=== PATIENT | male | born 1985 | race Two or more races ===

== ENCOUNTER 2023-10-11 18:28 | Emergency (ER) | payer MEDICAID, SELFPAY ==
--- NOTE | ~2023-10-11 | US_ITS ---
EXAMINATION: US ABDOMEN LIMITED CLINICAL INFORMATION: Right upper quadrant pain. Rule out gallstone.. COMPARISON: None available. TECHNIQUE: Real-time imaging of the gallbladder. FINDINGS: PANCREAS: Not evaluated. LIVER: The incidentally visualized portion of the liver appears unremarkable. No intrahepatic biliary duct dilatation is seen. GALLBLADDER: Echogenic structure in the gallbladder fossa with dirty posterior shadowing. Technologist reports positive sonographic Dixon's sign. COMMON BILE DUCT: Normal in caliber measuring 0.2 cm in diameter. RIGHT KIDNEY: Not evaluated. FREE FLUID: None grossly visualized. US/US abdomen limited IMPRESSION: Echogenic structure in the gallbladder fossa with dirty posterior shadowing. Although this finding may represent a gallbladder filled with stones, bowel within the gallbladder fossa status post cholecystectomy may mimic this finding. Recommend clinical correlation. The gallbladder is not definitively identified as such.
[2023-10-11 18:36] VITALS: BP 128/84; PULSE 71; RESP 18; TEMP 37.1; O2SAT 98; BMI 29.3
[2023-10-11 18:59] LABS: MANUAL DIFF FLAG NO
[2023-10-11 19:02] LABS: Basophils Absolute Auto 0.1 X10*3/uL (0.0-0.2); Basophils Percent Auto 0.6 % (0-2); Eosinophils Absolute Auto 0.3 X10*3/uL (0.0-0.4); Eosinophils Percent Auto 3.2 % (0-4); Hematocrit 44.3 % (42.0-52.0); Hemoglobin 15.3 g/dl (14.0-18.0); Imm Gran Abs Auto 0.02 X10*3/uL (0.00-0.03); Imm Gran Pct Auto 0.2 % (0.0-0.4); Lymphocytes Absolute Auto 2.8 X10*3/uL (1.2-4.9); Lymphocytes Percent Auto 33.1 % (20-40); Mean Corpuscular HGB Conc 34.5 g/dl (31.0-36.0); Mean Corpuscular Hemoglobin 27.9 pg (27.0-33.0); Mean Corpuscular Volume 80.7 fL (80.0-98.0); Mean Platelet Volume 9.6 fL (9.4-12.4); Monocytes Absolute Auto 0.6 X10*3/uL (0.1-1.2); Monocytes Percent Auto 6.6 % (2-11); Neutrophils Absolute Auto 4.8 x10*3/uL (2.0-8.3); Neutrophils Percent Auto 56.3 % (45-73); Platelet Count 252 X10*3/uL (160-400); Red Blood Count 5.49 X10*6/uL (4.60-5.80); Red Cell Distribution Width 11.9 % (11.0-16.0); White Blood Count 8.5 X10*3/uL (4.8-10.8)
[2023-10-11 19:17] LABS: Alanine Aminotransferase 49 U/L (0-40); Albumin Level 4.3 g/dL (3.5-5.0); Alkaline Phosphatase 84 U/L (39-117); Anion Gap 15 (12-20); Aspartate Amino Transferase 35 U/L (5-37); Bilirubin Direct 0.1 mg/dL (0.0-0.5); Bilirubin Total 0.5 mg/dL (0.0-1.0); Blood Urea Nitrogen 17 mg/dL (9-16); Calcium 9.6 mg/dL (8.4-10.2); Carbon Dioxide 26 mmol/L (22-29); Chloride 103 mmol/L (96-108); Creatinine Clr Calc Pharmacy 105.4; Estimated Glomerular Filt Rate > 60; Glucose Random 87 mg/dL (60-115); Lipase 25 U/L (8-78); Sodium 140 mmol/L (135-145); Total Protein 7.6 g/dL (6.5-8.0)
--- NOTE | 2023-10-11 19:19 | ED_ITS ---
HPI - Abdominal Pain General Chief Complaint: Abdominal Pain Stated Complaint: Abdominal pain Time Seen by Provider: 10/11/23 19:18 Source: patient and per diem interpreter Mode of arrival: ambulatory Limitations: no limitations History of Present Illness HPI narrative: 38 year old male with pmhx significant for omphalocele s/p surgery at presents to the ED today for evaluation of right upper quadrant abdominal pain x1 day. Reports pain came on acutely while at rest in his home. Pain comes and goes and is described as a dull aching sensation. States that he has never had this pain before. Pain is not exacerbated with p.o. intake. Last BM this morning. Admits that he has been evaluated for stomach issues in the past and was told to avoid dairy products, meats and high fatty foods. He can not remember what he was diagnosed with. Denies eating any of these foods recently. Denies known sick contacts. No known history of gallstones, hepatitis or liver disease. Denies fever, chills, nausea, vomiting, diarrhea, constipation, dysuria, hematuria, flank pain. Denies previous abdominal surgeries. interpreter deaf utilized during to communicate with patient. Related Data Allergies Allergy/AdvReac Type Severity Reaction Status Date / Time No Known Allergies Allergy Verified 10/11/23 18:39 Review of Systems Review of Systems Constitutional: No fever, chills, fatigue, night sweats, weight changes ENT/Mouth: No ear pain, hearing loss, nasal congestion, sinus pain, rhinorrhea, sore throat Eyes: No eye pain, swelling, redness, vision changes, discharge Cardio: No chest pain, palpitations, TRAVIS, orthopnea, peripheral edema Pulm: No SOB, cough, sputum, wheezing, dyspnea, hemoptysis GI: No nausea, vomiting, hematemesis, diarrhea, constipation, hematochezia, melena, +abdominal pain : No irregular bleeding, dysuria, frequency, urgency, hesitancy, hematuria, flank pain, urinary flow changes, urinary incontinence or retention MSK: No back pain, neck pain, joint pain, myalgias Skin: No lesions, rashes Neuro: No weakness, numbness, paresthesias, LOC, dizziness, headache All other systems reviewed and are negative. [facility] Past Medical History Attestation statement: The following information was validated with the patient. Source: old records reviewed and nursing notes reviewed Social History Social History Advance Directives: No Advance Directives Information Provided: No Physical Exam ED Vital Signs: Vital Signs - 24 hr 10/11/23 18:36 10/11/23 21:09 Temperature 98.8 F 98.1 F Pulse Rate 71 57 Respiratory Rate 18 18 Blood Pressure 128/84 120/64 Pulse Oximetry 98 97 Oxygen Delivery Method Room Air Room Air BMI result Body Mass Index 29.3 Vital signs stable, afebrile. Const General: cooperative, healthy appearing, comfortable and no acute distress; No diaphoretic Nutritional Appearance: average body habitus Orientation/consciousness: patient oriented x3 Limitations: no limitations Eyes General: appearance normal, both eyes and all related structures Conjunctivae: conjunctivae normal Sclerae: sclerae normal Pupils: Equal, round and reactive pupils present Resp Effort & Inspection: normal respiratory effort and able to speak in complete sentences Auscultation: clear to auscultation bilaterally Cardio Rate: regular rate Rhythm: regular rhythm GI Other: + abdomen soft, nondistended, mildly tender to palpation of the right upper quadrant without rebound tenderness or guarding. Normoactive bowel sounds x4. Negative McBurney point tenderness. Negative Dixon's sign. Inspection: Yes normal to inspection General: Yes no CVA tenderness Back/Spine/Pelvis Back: no CVA tenderness Skin General skin exam: no rashes or lesions noted Neuro General: patient oriented x3 Cranial nerves: Yes Equal, round and reactive pupils present Gait exam (Neuro): Normal gait present Course Course Course Narrative: 1944-- CBC without leukocytosis or anemia. No left shift. Chemistries left showing slightly elevated BUN to 17, normal creatinine. Lipase WNL. Slight elevation in ALT, liver enzymes otherwise WNL. Serology negative for COVID, flu. Awaiting right upper quadrant ultrasound. 2099-- Patient stable at the end of my shift. Signed out to my colleague MISA Crowley pending US. 2218 --> Patient's US showed evidence of gallstones but no acute cholecystitis. Explained this to the patient. Patient given IM Toradol. Patient discharged. Medical Decision Making Medical Decision Making MDM Narrative: 38 year old male with pmhx significant for omphalocele s/p surgery at presents to the ED today for evaluation of right upper quadrant abdominal pain x1 day. Vital signs stable, afebrile. Patient is nontoxic-appearing and in no acute distress. On exam, abdomen soft, nondistended, mildly tender to palpation of the right upper quadrant without rebound tenderness or guarding. Normoactive bowel sounds x4. Negative McBurney point tenderness. Negative Dixon's sign. No CVAT bilaterally. No jaundice or icterus. Clinical concern for gastritis, gastroenteritis, viral syndrome, cholelithiasis. Lower suspicion for hepatitis, cihrosis, cholecystitis, cholangitis, nephrolithiasis, obstructive uropathy, ischemic bowel, bowel obstruction, acute abdomen. Plan for labs, serology, abd US, and re-evaluation. Differential Diagnosis Differential Diagnoses: The differential diagnosis associated with the presentation includes As above. Admission/Observation Not indicated. Lab Data MDM Lab Attestation statement: I reviewed the patient's lab results. As above. 10/11/23 18:53 10/11/23 18:53 Labs: Lab Results 10/11/23 Range/Units 18:53 WBC 8.5 (4.8-10.8) X10*3/uL RBC 5.49 (4.60-5.80) X10*6/uL Hgb 15.3 (14.0-18.0) g/dl Hct 44.3 (42.0-52.0) % MCV 80.7 (80.0-98.0) fL MCH 27.9 (27.0-33.0) pg MCHC 34.5 (31.0-36.0) g/dl RDW 11.9 (11.0-16.0) % Plt Count 252 (160-400) X10*3/uL MPV 9.6 (9.4-12.4) fL Immature Gran % (Auto) 0.2 (0.0-0.4) % Neut % (Auto) 56.3 (45-73) % Lymph % (Auto) 33.1 (20-40) % [place] % (Auto) 6.6 (2-11) % Eos % (Auto) 3.2 (0-4) % Baso % (Auto) 0.6 (0-2) % Lymph # (Auto) 2.8 (1.2-4.9) X10*3/uL [place] # (Auto) 0.6 (0.1-1.2) X10*3/uL Eos # (Auto) 0.3 (0.0-0.4) X10*3/uL Baso # (Auto) 0.1 (0.0-0.2) X10*3/uL Abs Immat Gran (auto) 0.02 (0.00-0.03) X10*3/uL Absolute Neuts (auto) 4.8 (2.0-8.3) x10*3/uL Absolute Nucleated RBC 0.000 (0.0-0.012) X10*3/uL Nucleated RBC % (auto) 0.0 (0.0-0.2) /100WBC Sodium 140 (135-145) mmol/L Potassium 4.0 (3.3-5.1) mmol/L Chloride 103 (96-108) mmol/L Carbon Dioxide 26 (22-29) mmol/L Anion Gap 15 (12-20) BUN 17 H (9-16) mg/dL Creatinine 1.13 (0.5-1.4) mg/dL Estim Creat Clear Calc 105.4 Estimated GFR > 60 Random Glucose 87 (60-115) mg/dL Calcium 9.6 (8.4-10.2) mg/dL Total Bilirubin 0.5 (0.0-1.0) mg/dL Direct Bilirubin 0.1 (0.0-0.5) mg/dL AST 35 (5-37) U/L ALT 49 H (0-40) U/L Alkaline Phosphatase 84 (39-117) U/L Total Protein 7.6 (6.5-8.0) g/dL Albumin 4.3 (3.5-5.0) g/dL Lipase 25 (8-78) U/L COVID-19 (FILI) Negative (Negative) COVID-19 Clin Com See Note Influenza Type A (GEOFFREY) Negative (Negative) Influenza Type B (GEOFFREY) Negative (Negative) Influenza A & B Note See Note Independent Interpretation I performed an independent interpretation of an: Ultrasound Interpretation: I have personally reviewed ultrasound of right upper quadrant and agree with radiologist's interpretation. Radiology Impression Discussion of test interpretation with radiology: I have reviewed the radiologist's reading. Radiologist Impression: US abdomen limited IMPRESSION: Echogenic structure in the gallbladder fossa with dirty posterior shadowing. Although this finding may represent a gallbladder filled with stones, bowel within the gallbladder fossa status post cholecystectomy may mimic this finding. Recommend clinical correlation. The gallbladder is not definitively identified as such. Independent Historian Clinical information obtained from an independent historian. History obtained from or confirmed by: Spouse () Prescription Management I considered prescription management with: Pain Medication Chronic Conditions Patient?s care impacted by: Other (omphalocele) Social Determinants Patient?s care significantly limited by Social Determinants of Health including: Other Social Determinant of Health Critical Care Time Critical Care Time Critical Care Time: No Discharge Plan Discharge Clinical Impression: Right upper quadrant abdominal pain, Biliary colic, Gallstone Patient Disposition: Home, Self-Care Instructions: Biliary Colic (ED), Gallstones (ED), Abdominal Pain (ED) Additional Instructions: Follow up with your primary care provider and a general surgeon. Return to the emergency department immediately if your symptoms worsen or if you develop any dizziness, shortness of breath, difficulty breathing, chest pain, blurry vision, loss of vision, nausea, vomiting, abdominal pain, fever, chills, back pain, or any other complaints. Vinicius un seguimiento con yuan proveedor de atenci?n primaria y un cirujano general. Regrese al departamento de emergencias inmediatamente si cheo s?ntomas empeoran o si presenta mareos, dificultad para respirar, dificultad para respirar, dolor en el pecho, visi?n borrosa, p?rdida de la visi?n, n?useas, v?mitos, dolor abdominal, fiebre, escalofr?os, dolor de espalda o cualquier otras quejas. Referrals: [facility] [place] [facility] [place]Provider Group] (Call to establish and follow up with a general surgeon. Llame para establecer y harpreet seguimiento con un cirujano general.) Interventions: ED Discharge Assessment Last Done: 10/11/23 22:33 Discharge Date/Time: 10/11/23 22:33 Print Language: Macanese
[2023-10-11 19:28] LABS: COVID-19 Test Negative (Negative); IDNOW Serial# 152EDE1D; IDNOW Serial# 9DB6401D; Influenza A Negative (Negative); Influenza B2 Negative (Negative)
[2023-10-11 21:09] VITALS: BP 120/64; PULSE 57; RESP 18; TEMP 36.7; O2SAT 97
[2023-10-11] MEDS: Ketorolac Tromethamine 15 MG/ML VIAL IM (22:34)
== END 2023-10-11 22:33 | disposition home or self-care (01) ==
PROVIDERS: Emergency Provider Emergency Medicine
DX: K80.50 Calculus of bile duct without cholangitis or cholecystitis without obstruction (principal); R10.11 Right upper quadrant pain; Z11.52 Encounter for screening for COVID-19
CPT/HCPCS: 76705; 80048; 80076; 83690; 85025; 87502; 87635; 96372; 99283; 99284; J1885

== ENCOUNTER 2023-10-29 11:20 | Outpatient (AMB) | payer SELFPAY ==
--- NOTE | 2023-10-29 11:22 | A.OFFVIS_ITS ---
Intake Intake Visit Reasons: Biliary colic Intake Note: [place] [facility] [place] colic. Pt c/o; reports no RUQ pain at this time, reports no nausea or vomiting, reports no loss of appetite. 10/11/23: Estella US Button Grader Required: Yes Button Grader Language: Printed Circuit Photographer Name: Leyla Information Interpreted: non-clinical & clinical Accompanied by: Spouse Allergies No Known Allergies Allergy (Verified 10/29/23 11:26) HPI Biliary colic HPI Details [age] year old male referred for right upper quadrant pain and right flank. He apparently went to the ER last 10/11/2023 because of this complaint. He had an ultrasound which showed echogenicity in the gallbladder fossa with posterior shadowing but the gallbladder was not clearly identified then. He does admit to a history of kidney stones He says he has had a long history of episodic abdominal pain with intake of dairy food and fatty food. He said he was never told he had gallstones in the past He has history of abdominal surgery for omphalocele as an . Review of Systems Const Denies chills and Denies fever(s) Card Denies chest pain, Denies dyspnea and Denies dyspnea on exertion Resp Denies cough, Denies dyspnea and Denies dyspnea on exertion GI Denies hematochezia and Denies change in bowel habits Denies hematuria and Denies difficulty urinating Musc Denies back pain and Denies limited range of motion Neuro Denies focal weakness and Denies convulsions Psych Denies depression and Denies mood swings Physical Exam Const General: comfortable and no acute distress Orientation/consciousness: patient oriented x3 Neck Neck: Yes no lymphadenopathy Resp Auscultation: clear to auscultation bilaterally Cardio Rhythm: regular rhythm GI Other: Long transverse abdominal surgical scar Palpation (GI): Soft to palpation, nontender and no guarding Neuro General: patient oriented x3 Assessment & Plan Assessment & Plan (1) Right upper quadrant abdominal pain: Code(s): R10.11 - Right upper quadrant pain Plan: He had an ultrasound done in the ER last September,. This shows hypoechogenicity in the gallbladder fossa but the gallbladder itself was not clearly identified I am going to order for a CAT scan. He actually says that he is moving to [place] in 3 weeks. He says he will see if he will be able to do the CT scan here. I did advise him to make sure that when he moves back to his concerned that he should inform his primary care physician about his workup here. Coding Level of Care Code New Pt Level 3 (90659) Diagnoses Right upper quadrant abdominal pain R10.11
== END 2023-10-29 11:53 | disposition home or self-care (01) ==
PROVIDERS: Visit Provider Surgery
DX: R10.11 Right upper quadrant pain (principal)
CPT/HCPCS: 99203

== ENCOUNTER → 2023-10-29 11:20 | Outpatient (BNVA) | payer MEDICAID, SELFPAY | PROVIDERS: Visit Provider Surgery | DX: R10.11 Right upper quadrant pain (principal) | CPT/HCPCS: 99202 ==